=== PATIENT | male | born 1990 | race Caucasian/White ===

== ENCOUNTER 2018-06-27 14:58 | Emergency (ER) | payer SELFPAY ==
[2018-06-27 15:08] VITALS: BP 116/59
--- NOTE | 2018-06-27 15:49 | ER Document Report ---
ED GI/ - General Chief Complaint: Penile Problem Stated Complaint: PROLONGED ERECTION Time Seen by Provider: 06/27/18 15:45 Mode of Arrival: Ambulatory Information source: Patient Notes: Chief complaint: Persistent erection History of complain:( obtained from----patient) 18 years old male presents today with on and off persistent erection usually about 1-2 hours or 3 hours. But today it was persistent until 5:00 this morning till he came to the ER. By the time I saw him the reaction has subsided and has come back to normal. It was painful at the time. Not now. Has no history of sickle cell, not taking any erectile medications. Onset: As above Duration: As above Severity: Moderate Quality: Sharp Context: Unknown Exacerbating factor and relieving factors: Unknown REVIEW OF SYSTEMS: CONSTITUTIONAL : Denies fever, chills, or sweats. Denies recent illness. EENT: Denies eye, ear, throat, or mouth pain or symptoms. Denies nasal or sinus congestion or discharge. Denies throat, tongue, or mouth swelling or difficulty swallowing. CARDIOVASCULAR: Denies chest pain. Denies palpitations or racing or irregular heart beat. Denies ankle edema. RESPIRATORY: Denies cough, cold, or chest congestion. Denies shortness of breath, difficulty breathing, or wheezing. GASTROINTESTINAL: Denies distention. Denies nausea, vomiting, or diarrhea. Denies blood in vomitus, stools, or per rectum. Denies black, tarry stools. Denies constipation. GENITOURINARY: Denies difficulty urinating, painful urination, burning, frequency, blood in urine, or discharge. FEMALE GENITOURINARY: Denies vaginal bleeding, heavy or abnormal periods, irregular periods. Denies vaginal discharge or odor. MUSCULOSKELETAL: Denies back or neck pain or stiffness. Denies joint pain or swelling. SKIN: Denies rash, lesions or sores. HEMATOLOGIC : Denies easy bruising or bleeding. LYMPHATIC: Denies swollen, enlarged glands. NEUROLOGICAL: Denies confusion or altered mental status. Denies passing out or loss of consciousness. Denies dizziness or lightheadedness. Denies headache. Denies weakness or paralysis or loss of use of either side. Denies problems with gait or speech. Denies sensory loss, numbness, or tingling. Denies seizures. PSYCHIATRIC: Denies anxiety or stress. Denies depression, suicidal ideation, or homicidal ideation. ALL OTHER SYSTEMS REVIEWED AND NEGATIVE. PHYSICAL EXAMINATION: GENERAL: Well-appearing, well-nourished and in no acute distress. HEAD: Atraumatic, normocephalic. EYES: Pupils equal round and reactive to light, extraocular movements intact, conjunctiva are normal. ENT: Nares patent, oropharynx clear without exudates. Moist mucous membranes. NECK: Normal range of motion, supple without lymphadenopathy LUNGS: Breath sounds clear to auscultation bilaterally and equal. No wheezes rales or rhonchi. HEART: Regular rate and rhythm without murmurs ABDOMEN: Soft, nontender, nondistended abdomen. No guarding, no rebound. No masses appreciated. Examination of the genital-penile gland appears normal is not tense. Normal scrotum. Examination of genitals-deferred Musculoskeletal: Normal range of motion, no pitting or edema. No cyanosis. NEUROLOGICAL: Cranial nerves grossly intact. Normal speech, normal gait. Normal sensory, motor exams PSYCH: Normal mood, normal affect. SKIN: Warm, Dry, normal turgor, no rashes or lesions noted. Dictation was performed using [employer] voice recognition software TRAVEL OUTSIDE OF THE [place] IN LAST 30 DAYS: No - HPI Notes: 06/27/18 15:47 Dictated - Related Data Allergies/Adverse Reactions: No Known Allergies Allergy (Unverified 06/27/18 15:00) Past Medical History - Social History Smoking Status: Current Some Day Smoker Chew tobacco use (# tins/day): No Frequency of alcohol use: Occasional Drug Abuse: None Family History: Reviewed & Not Pertinent Patient has suicidal ideation: No Patient has homicidal ideation: No Renal/ Medical History: Denies: Hx Peritoneal Dialysis Review of Systems - Review of Systems Notes: Dictated Physical Exam - Vital signs Vitals: Temp Pulse Resp BP Pulse Ox 98.2 F 67 18 116/59 L 97 06/27/18 15:06/27/18 15:06/27/18 15:06/27/18 15:06/27/18 15:07 - Notes Notes: Dictated Course - Vital Signs Vital signs: Temp Pulse Resp BP Pulse Ox 98.2 F 67 18 116/59 L 97 06/27/18 15:06/27/18 15:06/27/18 15:06/27/18 15:07 06/27/18 15:07 Discharge - Discharge Clinical Impression: Keith Condition: Fair Disposition: HOME, SELF-CARE Instructions: Keith (MICHAEL)
== END 2018-06-27 15:52 | disposition home or self-care (01) ==
LOC: ER 14:58
DX: N48.30 Priapism, unspecified (principal); F17.200 Nicotine dependence, unspecified, uncomplicated
CPT/HCPCS: 99283

== ENCOUNTER 2018-11-17 18:15 | Emergency (ER) | payer SELFPAY ==
--- NOTE | 2018-11-17 19:16 | ER Document Report ---
ED General - General Chief Complaint: Back Injury Stated Complaint: BACK/LEG PAIN Time Seen by Provider: 11/17/18 18:52 Notes: Patient is a 28-year-old male that presents to the emergency department for chief complaint of left-sided back pain with radiation to the leg. Patient states that about 3 weeks ago, he was lifting something heavy, and felt pain in his left lower back, that was radiating down his leg. It has been constant since then and worse with walking, and lifting. He then seemed to reinjure it about 1 week ago, and it got worse since then. He currently rates his pain as a 3 out of 10 at rest while sitting, but does get worse with walking and bending and leaning over. He describes the pain as a aching sensation with radiation down the back of the leg to the knee. Denies any numbness, weakness or tingling, denies saddle anesthesia or paresthesias, denies urinary incontinence or retention, denies any incontinence of stool. Denies any other injuries, denies falls, motor vehicle collisions. Past Medical History: Denies chronic medical conditions Past Surgical History: Denies surgical history Social History: Denies tobacco use, admits to occasional alcohol and occasional marijuana use. Family History: Reviewed and noncontributory for presenting illness Allergies: Reviewed, see documented allergy list. REVIEW OF SYSTEMS: Other than noted above, the 12 point review of systems was reviewed with the patient and were negative, all pertinent findings are included in the HPI. PHYSICAL EXAMINATION: Vital signs reviewed, nursing noted reviewed. GENERAL: Well-appearing, well-nourished and in no acute distress. HEAD: Atraumatic, normocephalic. EYES: Eyes appear normal, sclera anicteric, conjunctiva are normal. ENT: Moist mucous membranes. NECK: Normal range of motion, supple without lymphadenopathy LUNGS: Breath sounds clear to auscultation bilaterally and equal. No wheezes rales or rhonchi. HEART: Regular rate and rhythm without murmurs EXTREMITIES: Nontender, good range of motion, no pitting or edema. Back: Positive straight leg raising testing on the left, where the pain starts radiating when extending the knee, mild tenderness to palpation of the paraspinal muscles, and tenderness to palpation over the piriformis muscle on the left. Nontender on the right. No midline tenderness to the thoracic or lumbar spine. NEUROLOGICAL: No focal neurological deficits. Moves all extremities spontaneously Motor and sensory grossly intact on exam. Patellar and Achilles tendon reflexes are +2/4 bilaterally and equal. PSYCH: Normal mood, normal affect. SKIN: Warm, Dry, normal turgor, no rashes or lesions noted on exposed skin TRAVEL OUTSIDE OF THE [place] IN LAST 30 DAYS: No - Related Data Allergies/Adverse Reactions: No Known Allergies Allergy (Verified 11/17/18 18:20) Past Medical History - Social History Smoking Status: Never Smoker Chew tobacco use (# tins/day): No Frequency of alcohol use: Social Drug Abuse: Marijuana Family History: Reviewed & Not Pertinent Patient has suicidal ideation: No Patient has homicidal ideation: No Renal/ Medical History: Denies: Hx Peritoneal Dialysis Physical Exam - Vital signs Vitals: Temp Pulse Resp BP Pulse Ox 99.3 F 67 16 134/72 H 97 11/17/18 18:31 1218 18:31 12 18:31 11/17/18 18:31 11/17/18 18:31 Course - Re-evaluation Re-evalutation: Patient seen and examined vital signs reviewed. Patient was evaluated and treated as appropriate for the patient's presenting symptoms and complaint, with consideration of any critical or life threatening conditions that may be associated with their obtained history and exam as noted above. Patient was treated with naproxen, prednisone, and [place] and Robaxin. The patient was re-evaluated and was improved Evaluation was most consistent with left-sided sciatica, will prescribe the patient prednisone for 4 additional days, naproxen 500 mg twice daily, Geneva dispense pack of 6 tablets, and Robaxin 750 mg 3 times daily as needed. He is also advised to follow-up with orthopedic surgery, as he may need physical therapy, advised warm and cool compresses for 20 minutes on 20 minutes off. Patient examined history not consistent with cauda equina syndrome or conus medullaris syndrome, no radicular symptoms other than pain rating down the left leg, no further imaging needed at this time. Plan of care was discussed with the patient at this point, after careful consideration I feel that that patient can be discharged from the emergency department, the patient was educated treatments and reasons to return to the emergency department based on their presumed diagnosis as noted above, they were advised to followup with a primary care physician in 2-3 days. Patient was agreeable to plan of care. *Note is created using voice recognition software and may contain spelling, syntax or grammatical errors. - Vital Signs Vital signs: Temp Pulse Resp BP Pulse Ox 98.4 F 90 16 134/79 H 99 11/17/18 19:25 11/17/18 19:25 11/17/18 19:25 11/17/18 19:25 11/17/18 19:25 Discharge - Discharge Clinical Impression: Sciatica Qualifiers: Laterality: left Qualified Code(s): M54.32 - Sciatica, left side Condition: Stable Disposition: HOME, SELF-CARE Instructions: Sciatica (OM) Additional Instructions: Please use warm or cool compresses for 20 minutes on and 20 minutes off as needed for pain in addition to the medications prescribed, do not drive while taking the norco or the Robaxin. Prescriptions: Methocarbamol [Robaxin 750 mg Tablet] 750 mg PO TID #30 tablet Naproxen [Naprosyn] 500 mg PO BIDP PRN #30 tablet PRN Reason: back pain RX: Prednisone [Deltasone 20 mg Tablet] 3 tab PO DAILY 4 Days tablet Referrals: MAXIMUS RUSH MD [ACTIVE STAFF] - Follow up in 3-5 days (orthopedics )
[2018-11-17] MEDS ORDERED: METHOCARBAMOL 750 MG TABLET PO ONE (19:17)
[2018-11-17] MEDS ORDERED: HYDROCODONE/ACETAMINOPHEN 5-325 MG (6 TAB/ER DISP) PO PRN (19:17)
[2018-11-17] MEDS ORDERED: PREDNISONE 20 MG TABLET PO ONE (19:17)
[2018-11-17] MEDS ORDERED: NAPROXEN 250 MG TABLET PO ONE (19:17)
[2018-11-17] MEDS ORDERED: HYDROCODONE/ACETAMINOPHEN 5-325 MG TABLET PO ONE (19:17)
[2018-11-17 19:28] VITALS: BP 134/79
== END 2018-11-17 19:26 | disposition home or self-care (01) ==
LOC: ER 18:15
DX: M54.32 Sciatica, left side (principal); M54.9 Dorsalgia, unspecified; M25.561 Pain in right knee
CPT/HCPCS: 99283; J3490; J7512